=== PATIENT | female | born 1945 | race Caucasian/White ===

== ENCOUNTER 2018-05-04 16:27 | Emergency (ER) | payer OTHER, MEDICARE ==
[~2018-05-04] VITALS: Ht 162.6 cm; Wt 68.9 kg
[~2018-05-04 16:27] MED LIST: 24 HOUR ALLER15.8 ML BOTH NARES; ANTIVERT25 MG PO; AZELASTINE137 MCG/0. BOTH NARES; CALCIUM 600 +1 EAC9 PO; CELEBREX200 MG PO; CRANBERRY500 M3 PO; FLEXERIL5 MG PO; HAIR, SKIN & N1 EAC1 PO; LIPITOR20 MG PO; LYRICA50 MG PO; NEXIUM40 MG PO; OCUVITE TABLET1 EACH PO; ONE DAILY 50 P1 EACH PO; RESTASIS 01 DROP/0.4 BOTH EYES; TYLENOL WITH C1 EACH PO; VITAMIN D35000 UNIT PO
[2018-05-04 17:00] LABS: APPEARANCE CLOUDY ((CLEAR)); BILIRUBIN NEGATIVE; BLOOD MODERATE; COLOR YELLOW ((YELLOW)); GLUCOSE (STRIP) NEGATIVE; KETONES NEGATIVE; LEUKOCYTES LARGE; NITRITE POSITIVE; PROTEIN (STRIP) 100; SPECIFIC GRAVITY 1.016 (1.000-1.030); UROBILINOGEN 0.2 MG/DL (0.2-1.0)
[2018-05-04 17:04] LABS: BASOPHIL (%) 0.5 % (0-1); EOSINOPHIL (%) 1.9 % (0-5); EOSINOPHIL COUNT 0.2 K/uL (0-0.3); HEMATOCRIT 36.3 % (36.0-46.0); HEMOGLOBIN 12.1 G/DL (11.9-15.5); IMMATURE GRANULOCYTE (%) 0.1 % (0.0-0.7); LYMPHOCYTE (%) 17.1 % (15-42); LYMPHOCYTE COUNT 1.3 K/uL (1.0-2.8); MCH 30.7 PG (29.0-34.0); MCHC 33.3 G/DL (30.0-36.0); MCV 92.1 FL (83-99); MONOCYTE (%) 1.4 % (3-12); MONOCYTE COUNT 0.1 K/uL (0-0.8); NEUTROPHIL COUNT 6.1 K/uL (1.8-6.4); PLATELET COUNT 197 K/uL (156-360); RBC DIS.WIDTH-CV 13.4 % (11.8-14.6); RBC DIS.WIDTH-SD 45.8 % (39-53); RED BLOOD COUNT 3.94 M/uL (3.80-5.20); WHITE BLOOD COUNT 7.7 K/uL (4.1-10.2)
[2018-05-04 17:12] LABS: ALBUMIN 4.4 g/dL (3.2-4.8); CHLORIDE 109 mEq/L (99-109); POTASSIUM 4.2 mEq/L (3.7-5.4); SODIUM 142 mEq/L (136-147)
[2018-05-04 17:15] LABS: GLUCOSE 125 mg/dL (70-99)
[2018-05-04 17:17] LABS: TOTAL BILIRUBIN 0.7 mg/dL (0.0-1.0)
[2018-05-04 17:18] LABS: ALKALINE PHOSPHATASE 121 IU/L (3-129)
[2018-05-04 17:19] LABS: CREATININE 1.4 mg/dL (0.6-1.3); GFR ESTIMATE (CALCULATED) 40 mL/min/
[2018-05-04 17:20] LABS: AST (GOT) 41 IU/L (2-34); DIRECT BILIRUBIN 0.3 mg/dL (0.0-0.3); UREA NITROGEN (BUN) 20 mg/dL (9-23)
[2018-05-04 17:21] LABS: ALT (GPT) 38 IU/L (3-49)
[2018-05-04 17:25] LABS: TROP-I INTERPRETATION NEGATIVE; TROPONIN-I < 0.01 ng/mL (0.0-0.30)
[2018-05-04 17:31] LABS: BACTERIA 2+ /HPF; EPITHELIAL CELLS 1+ /HPF; MUCUS RARE /LPF; UCUL ADDED? YES; WHITE BLOOD CELLS TNTC /HPF (0-5)
[2018-05-04] MEDS ORDERED: CIPRO500 MG PO (21:34)
[2018-05-04 22:06] VITALS: BP 95/55
== END 2018-05-04 22:06 | disposition home or self-care (01) ==
LOC: EME 16:27
PROVIDERS: Emergency Medicine
DX: N39.0 Urinary tract infection, site not specified (principal); R50.9 Fever, unspecified; R51 Headache; M79.1 Myalgia; I10 Essential (primary) hypertension; Z88.0 Allergy status to penicillin
CPT/HCPCS: 71046; 80048; 80076; 81003; 83605; 84484; 85025; 87040; 87077; 87086; 87186; 87801; 99281; 99285; J0696; J7030